=== PATIENT | male | born 1960 ===

== ENCOUNTER 2022-08-24 14:42 | Outpatient (REF) | payer OTHER, SELFPAY ==
--- NOTE | 2022-08-24 16:18 | MHC.AU.MED ---
Medical Clearance for Hearing Instrumentation Date: 08/24/22 Patient Name: Yves Gramajo Date of : 1960 Primary Care Provider: Referring Provider: Oh Kimball MD We have seen your patient on 08/24/22 and have determined that they are a candidate for amplification (See accompanying report). Specifically, they would benefit from: Hearing aid use in both ears There is a statute that addresses Medical Evaluation Requirements prior to fitting a patient with a hearing aid. According to [place] statute 265 CMR:6.03(1), (a) General. Except as provided in 265 CMR 6.03(1)(b), a gi technician shall not sell a hearing aid unless the prospective user has presented to the gi technician a written statement signed by a licensed physician that states that the patient's hearing loss has been medically evaluated and the patient may be considered a candidate for a hearing aid. The medical evaluation must have taken place within the preceding six months. Please note: Due to the [place] Statute referenced above, we cannot accept a signature other than that of a licensed physician. RN MED SURG and PA signatures cannot be accepted. I am in agreement with the above recommendation. There is no medical contraindication for hearing instrumentation. Physician Signature Date Physician Name (Printed)
--- NOTE | 2022-10-03 14:50 | MHC.AU.HAS ---
Hearing Aid Evaluation Date of Visit: 08/24/22 Historical Information: Description of Hearing: Hearing test performed 04/16/2022 by [facility] in [place] reveals hearing within normal limits bilaterally through 2000 Hz sloping to a severe sensorineural hearing loss. SRT is in agreement. WRS is poor in the right ear and very poor in the left ear. Note that given ease of communication at a slightly louder than normal conversational level at today's appointment that these WRS results should likely be checked prior to fitting the aid. Updated medical clearance and PA needed. Summary: Patient is transferring care to us as [facility] does not take his insurance ([facility]). He reported that he has been noticing a lot of difficulty with his hearing and has the TV all of the way up at home. 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 He did not have any particular concerns about his hearing aids. He was happy to have a NAZIA style aid, especially as we discussed the benefit of that style for his configuration of hearing loss. We also reviewed the importance of wearing the aids consistently to derive the most benefit possible from them as he was originally planning on wearing them only when watching TV and at events. Given today's discussion, we decided on a pair of Phonak Audeo L70-R hearing aids in silver hair with 2/85 receivers for both ears. Hearing Aid Prescription: Based on the individual?s shared listening needs, communication environments, dexterity, desire for connectivity, and personal preferences, the following prescription for amplification has been made: Right ear: Sheet Metal Helper: Phonak Model: Audeo L70-R Battery Size: Rechargeable Color: Silver Hair Solar Site Assessment Specialist: 2M Type of Dome:Open Left ear: Left ear prescription to be same as Right Hearing Aid above: Sheet Metal Helper: Phonak Model: Audeo L70-R Battery Size: Rechargeable Color: Silver Hair Solar Site Assessment Specialist: 2M Type of Dome: Open Plan of Care: Patient wishes to purchase hearing aids as prescribed Action Taken/Action Needed: Prior authorization to be requested Medical Clearance to be requested from PCP/ENT Primary Diagnosis: H90.3 Bilateral Sensorineural Hearing Loss Signature: Student/Clinical Fellow: Yes, Nahed Schultz, HIS Seed Tester I have reviewed/agreed with student/fellow documentation: Yes Provider: Mercy Dey, [facility]
== END 2022-08-24 14:43 | disposition home or self-care (01) ==
LOC: HO.HAP 14:42
PROVIDERS: Visit Provider Family Medicine
DX: Z46.1 Encounter for fitting and adjustment of hearing aid (principal); H90.3 Sensorineural hearing loss, bilateral
CPT/HCPCS: 92591

== ENCOUNTER 2022-11-08 12:54 | Outpatient (REF) | payer OTHER, SELFPAY ==
--- NOTE | 2022-11-08 15:11 | MHC.AU.HA2 ---
Hearing Instrument Fitting- Adult- Binaural Date of Visit: 11/08/22 Hearing Instruments Dispensed: Right Ear: Elvin, Model, Color, Serial Number: Mera Ramirez L70-R SN: [id number] Color: Silver Hair Protective Signal Superintendent Repair Warranty: 01/02/2026 Protective Signal Superintendent Loss and Damage Warranty: 01/02/2026 [facility] Service Plan: 11/09/2023 Battery Size: Rechargeable Tin Roofer/Slim Tube: 2M Earmold/Dome/CShell/SlimTip: Medium vented dome with retention tail Type of Wax Guard: CeruShield Left Ear: Elvin, Model, Color, Serial Number: Mera Ramirez L70-R SN: [id number] Color: Silver Hair Protective Signal Superintendent Repair Warranty: 01/02/2026 Protective Signal Superintendent Loss and Damage Warranty: 01/02/2026 [facility] Service Plan: 11/09/2023 Battery Size: Rechargeable Tin Roofer/Slim Tube: 2M Earmold/Dome/CShell/SlimTip: Medium vented dome with retention tail Type of Wax Guard: CeruShield Accessories/Assistive Technology: Contact Center Engineer SN: [id number] Summary of Fitting: Retested hearing due to inconsistencies in previous test (see separate audio). Performed feedback analyzer and real ear measurements. Slightly below target due to limits of feedback curve. Set occlusion compensation to medium due to loudness of own voice. Otherwise, Yves was satisfied with the overall sound quality and noticed an immediate improvement in ease of understanding. Discussed care, use, and rechargeability including manually turning on/off, volume control use, and changing domes and wax guards. Yves had some difficulty inserting the hearing aids but seems motivated to practice. Explained importance of daily, consistent use and acclimatization period. Yves did not want to pair the hearing aids to his cell phone at this time. Recommendations: A hearing instrument follow-up was scheduled. Diagnosis Code(s): Primary Diagnosis: H90.3 Bilateral Sensorineural Hearing Loss Signature: Provider: Mercy Dey, [facility]
== END 2022-11-08 12:55 | disposition home or self-care (01) ==
LOC: HO.HAP 12:54
PROVIDERS: Visit Provider Family Medicine
DX: Z46.1 Encounter for fitting and adjustment of hearing aid (principal); H90.3 Sensorineural hearing loss, bilateral
CPT/HCPCS: V5011; V5020; V5160; V5261